=== PATIENT | male | born 1975 | race Caucasian/White ===

== ENCOUNTER 2019-10-14 13:06 | Emergency (ER) | payer MEDICAID ==
[~2019-10-14] VITALS: Ht 165.1 cm; Wt 67.1 kg
[2019-10-14 13:23] VITALS: BP_SYST 116
--- NOTE | 2019-10-14 13:52 | NUR ---
Patient to ER bed 04 to gown for evaluation. Side rails up.
--- NOTE | 2019-10-14 13:56 | NUR ---
Patient arrived in the the ED c/o Left-sided shooting neck pain. Denied any recent trauma, injury or falls. Patient denied any chest pain or shortness of breath. Denied any fevers, chills, nausea or vomiting. Patient is alert and oriented x4, respirations even and unlabored, speaking in full sentences, ambulating with a steady gait. VSS, pain level 7/10. at bedside. Informed of the approximate wait time. Instructed to notify ED staff for any changes in condition or worsening of symptoms. Patient verbalized understanding.
--- NOTE | 2019-10-14 14:20 | NUR ---
ER Dr. Lees at bedside examining patient.
[2019-10-14] MEDS ORDERED: DIAZEPAM 5 MG TABLET (VALIUM) PO ONE (14:45)
[2019-10-14] MEDS ORDERED: KETOROLAC TROMETHAMINE 30 MG VIAL IM ONE (14:45)
--- NOTE | 2019-10-14 14:50 | NUR ---
Administered Valium PO and Toradol IM as ordered by Dr. Maxwell. Patient tolerated the medication well. See eMAR for details.
--- NOTE | 2019-10-14 15:15 | NUR ---
X-ray tech at bedside as ordered by Dr. Maxwell. Patient tolerated the procedure well.
--- NOTE | 2019-10-14 15:42 | NUR ---
Patient given written and verbal discharge instructions and verbalizes understanding. ER MD discussed with patient the results and treatment provided. Patient in stable condition. ID arm band removed. Rx of Clonopin and Ibuprofen given. Patient educated on pain management and to follow up with PMD. Pain Scale 0/10. Opportunity for questions provided and answered. Medication side effect fact sheet provided.
[2019-10-14 15:48] VITALS: BP_SYST 116
== END 2019-10-14 15:48 | disposition home or self-care (01) ==
LOC: SED 13:06
DX: M43.6 Torticollis (principal); I10 Essential (primary) hypertension; E78.00 Pure hypercholesterolemia, unspecified
CPT/HCPCS: 96372; 99283; J1885